=== PATIENT | female | born 1985 | race Caucasian/White ===

== ENCOUNTER 2017-01-23 19:48 | Emergency (ER) | payer SELFPAY ==
[~2017-01-23] VITALS: Ht 165.1 cm; Wt 55.0 kg
[~2017-01-23 19:48] MED LIST: CHLO.12%30 SSP; CLIN150 PO; METH40TA9 PO; PRED20 PO
[2017-01-23 19:50] VITALS: BP 138/80; PULSE 96; RESP 16; TEMP 98.6; O2SAT 98
--- NOTE | 2017-01-23 20:11 | PD ---
Physical Exam Time Seen by Provider: 20:10 Narrative 31 y/o female here for evaluation of a tampon stuck inside the vagina for 6 hours. Vital signs reviewed. Seen at triage desk. Awaiting bed placement. Data Data Last Documented VS Vital Signs Date Time Temp Pulse Resp B/P Pulse Ox O2 Delivery O2 Flow Rate FiO2 01/23/17 19:50 98.6 96 16 138/80 98 MDM Medical Record Reviewed: Yes Supervised Visit with GAMAL: Bill Raman Jan 23, 2017 20:10
[2017-01-23] MEDS ORDERED: METH40TA PO (20:59)
--- NOTE | 2017-01-23 21:12 | PD ---
HPI Chief Complaint: Foreign Body Time Seen by Provider: 21:11 Travel History International Travel<30 days: No Contact w/Intl Traveler<30days: No Traveled to known affect area: No History of Present Illness HPI 31-year-old female presents to the emergency department stating that the string broke on her tampon and she cannot remove it from her vagina. She states that it has been there since 3 PM this afternoon. She denies any other complaints. No abdominal pain. No abnormal vaginal discharge. No fevers or chills. Patient has no medical problems. She does take methadone. No other medications. PFSH Past Medical History Anxiety: Yes Depression: Yes Diminished Hearing: No Psychiatric: Yes (DEPRESSION,ANXIETY) Immunizations Current: Yes Seizures: Yes (WHEN I WAS YOUNGER ONLY) Tetanus Vaccination: < 5 Years Influenza Vaccination: No ?: Not LMP: current Menopausal: No : 1 Para: 0 Miscarriage: 1 : 0 Ectopic : No Ovarian Cysts: Yes Dilation and Curettage (D&C): No Tubal Ligation: No Past Surgical History Section: No Hysterectomy: No Tonsillectomy: Yes Social History Alcohol Use: No Tobacco Use: No Substance Use: Yes (IN [facility]) Allergies-Medications (Allergen,Severity, Reaction): Coded Allergies: latex (Unverified Allergy, Severe, HIVES, 01/23/17) Reported Meds & Prescriptions Reported Meds & Active Scripts Active Reported Methadone (Methadone HCl) 40 Mg Tab 70 Mg PO DAILY Review of Systems Except as stated in HPI: all other systems reviewed are Neg Physical Exam Narrative GENERAL: Well-nourished, well-developed female patient, ambulatory. Afebrile SKIN: Focused skin assessment warm/dry. HEAD: Normocephalic. Atraumatic. EYES: No scleral icterus. No injection or drainage. NECK: Supple, trachea midline. No JVD or lymphadenopathy. CARDIOVASCULAR: Regular rate and rhythm without murmurs, gallops, or rubs. RESPIRATORY: Breath sounds equal bilaterally. No accessory muscle use. GASTROINTESTINAL: Abdomen soft, non-tender, nondistended. MUSCULOSKELETAL: No cyanosis, or edema. Data Data Last Documented VS Vital Signs Date Time Temp Pulse Resp B/P Pulse Ox O2 Delivery O2 Flow Rate FiO2 01/23/17 20:55 16 01/23/17 19:50 98.6 96 138/80 98 MDM Medical Decision Making Medical Screen Exam Complete: Yes Emergency Medical Condition: Yes Medical Record Reviewed: Yes Differential Diagnosis Retained tampon versus medical clearance versus other Narrative Course 31-year-old female presents to the emergency department stating that she cannot get her tampon vagina. It has only been there since 3 PM this afternoon. Patient appears well on exam. She has verbal consent for pelvic exam removal tampon. Tampon was removed without difficulty. Patient is stable for discharge. Diagnosis Primary Impression: Retained tampon Qualified Code: T19.2XXA - Retained tampon, initial encounter Referrals: Primary Care Physician as needed Patient Instructions: General Instructions, Vaginal Foreign Body (ED) Additional Instructions: Follow up with your primary care physician as needed. Return here for any acute, worsening of symptoms. Med/Other Pt SpecificInfo: No Change to Meds Disposition: 01 DISCHARGE HOME Condition: Stable Saeid,Gege LINCOLN Jan 23, 2017 21:12
== END 2017-01-23 22:05 | disposition home or self-care (01) ==
LOC: NEPD 19:48
DX: T19.2XXA Foreign body in vulva and vagina, initial encounter (principal)
CPT/HCPCS: 99282

== ENCOUNTER 2017-09-05 08:14 | Emergency (ER) | payer SELFPAY ==
[~2017-09-05] VITALS: Ht 160 cm; Wt 50.0 kg
[~2017-09-05 08:14] MED LIST changes: -CHLO.12%30 SSP; -CLIN150 PO; +METH40TA PO; -METH40TA9 PO; -PRED20 PO
[2017-09-05 08:17] VITALS: BP 141/72; PULSE 72; RESP 16; TEMP 97.5; O2SAT 100
--- NOTE | 2017-09-05 08:34 | PD ---
HPI Chief Complaint: GI Complaint Time Seen by Provider: 08:31 Travel History International Travel<30 days: No Contact w/Intl Traveler<30days: No Traveled to known affect area: No History of Present Illness HPI Patient states that she woke up suddenly with room spinning, nausea, vomiting that occurred this morning. Patient denies any alleviating factors. Patient denies any associated factors such as headache/rash/fever/chest pain/back pain/ abdominal pain/diarrhea/cough/runny nose/sore throat States allergy to latex Past medical history significant for tonsillectomy, seizures during childhood, ovarian cyst, depression anxiety, PFSH Past Medical History Anxiety: Yes Depression: Yes Diminished Hearing: No Psychiatric: Yes (DEPRESSION,ANXIETY) Immunizations Current: Yes Seizures: Yes (WHEN I WAS YOUNGER ONLY) Menopausal: No : 1 Para: 0 Miscarriage: 1 : 0 Ectopic : No Ovarian Cysts: Yes Dilation and Curettage (D&C): No Tubal Ligation: No Past Surgical History Section: No Hysterectomy: No Tonsillectomy: Yes Social History Alcohol Use: No Tobacco Use: No Substance Use: Yes (IN [facility]) Allergies-Medications (Allergen,Severity, Reaction): Coded Allergies: latex (Verified Allergy, Severe, HIVES, 09/05/17) Reported Meds & Prescriptions Reported Meds & Active Scripts Active Reported Methadone (Methadone HCl) 40 Mg Tab 80 Mg PO DAILY Review of Systems General / Constitutional: No: Fever Eyes: No: Visual changes HENT: Positive: Vertigo, No: Headaches Cardiovascular: No: Chest Pain or Discomfort Respiratory: No: Shortness of Breath Gastrointestinal: Positive: Nausea Genitourinary: No: Dysuria Musculoskeletal: No: Pain Skin: No Rash Neurologic: No: Weakness Psychiatric: Positive: Anxiety Endocrine: No: Polydipsia Hematologic/Lymphatic: No: Easy Bruising Physical Exam Narrative GENERAL: SKIN: Warm and dry. HEAD: Atraumatic. Normocephalic. EYES: Pupils equal and round. No scleral icterus. No injection or drainage. ENT: No nasal bleeding or discharge. Mucous membranes pink and moist. NECK: Trachea midline. No JVD. CARDIOVASCULAR: Regular rate and rhythm. RESPIRATORY: No accessory muscle use. Clear to auscultation. Breath sounds equal bilaterally. GASTROINTESTINAL: Abdomen soft, non-tender, nondistended. MUSCULOSKELETAL: Extremities without clubbing, cyanosis, or edema. No obvious deformities. NEUROLOGICAL: Awake and alert. No obvious cranial nerve deficits. Motor grossly within normal limits. Five out of 5 muscle strength in the arms and legs. Normal speech. PSYCHIATRIC: Appropriate mood and affect; insight and judgment normal. Data Data Last Documented VS Vital Signs Date Time Temp Pulse Resp B/P (MAP) Pulse Ox O2 Delivery O2 Flow Rate FiO2 09/05/17 08:46 17 99 Room Air 09/05/17 08:17 97.5 72 141/72 (95) Orders Orders Complete Blood Count With Diff (09/05/17 08:34) Comprehensive Metabolic Panel (09/05/17 08:34) Lipase (09/05/17 08:34) Urinalysis - C+S If Indicated (09/05/17 08:34) Thyroid Stimulating Hormone (09/05/17 08:34) Iv Access Insert/Monitor (09/05/17 08:34) Ecg Monitoring (09/05/17 08:34) Oximetry (09/05/17 08:34) Ed Urine Pregnancytest Poc (09/05/17 08:34) Drug Screen, Random Urine (09/05/17 08:34) Alcohol (Ethanol) (09/05/17 08:34) Salicylates (Aspirin) (09/05/17 08:34) Tylenol (Acetaminophen) (09/05/17 08:34) Diphenhydramine Inj (Benadryl Inj) (09/05/17 08:45) Prochlorperazine Inj (Compazine Inj) (09/05/17 08:45) Sodium Chlor 0.9% 1000 Ml Inj (Ns 1000 M (09/05/17 08:43) Labs Laboratory Tests Test 09/05/17 08:48 White Blood Count 5.0 TH/MM3 Red Blood Count 4.27 MIL/MM3 Hemoglobin 13.1 GM/DL Hematocrit 39.0 % Mean Corpuscular Volume 91.2 FL Mean Corpuscular Hemoglobin 30.7 PG Mean Corpuscular Hemoglobin Concent 33.7 % Red Cell Distribution Width 13.1 % Platelet Count 158 TH/MM3 Mean Platelet Volume 9.8 FL Neutrophils (%) (Auto) 74.4 % Lymphocytes (%) (Auto) 16.2 % Monocytes (%) (Auto) 7.9 % Eosinophils (%) (Auto) 1.3 % Basophils (%) (Auto) 0.2 % Neutrophils # (Auto) 3.7 TH/MM3 Lymphocytes # (Auto) 0.8 TH/MM3 Monocytes # (Auto) 0.4 TH/MM3 Eosinophils # (Auto) 0.1 TH/MM3 Basophils # (Auto) 0.0 TH/MM3 CBC Comment DIFF FINAL Differential Comment Urine Color YELLOW Urine Turbidity CLOUDY Urine pH 8.5 Urine Specific [place] 1.019 Urine Protein 30 mg/dL Urine Glucose (UA) NEG mg/dL Urine Ketones 10 mg/dL Urine Occult Blood NEG Urine Nitrite NEG Urine Bilirubin NEG Urine Urobilinogen LESS THAN 2.0 MG/DL Urine Leukocyte Esterase NEG Urine RBC LESS THAN 1 /hpf Urine WBC 1 /hpf Urine Squamous Epithelial Cells 3 /hpf Urine Amorphous Sediment MANY Urine Bacteria OCC /hpf Urine Mucus FEW /lpf Microscopic Urinalysis Comment CULT NOT INDICATED Blood Urea Nitrogen 9 MG/DL Creatinine 0.71 MG/DL Random Glucose 120 MG/DL Total Protein 6.8 GM/DL Albumin 3.8 GM/DL Calcium Level 8.6 MG/DL Alkaline Phosphatase 46 U/L Aspartate Amino Transf (AST/SGOT) 21 U/L Alanine Aminotransferase (ALT/SGPT) 21 U/L Total Bilirubin 0.5 MG/DL Sodium Level 141 MEQ/L Potassium Level 3.5 MEQ/L Chloride Level 108 MEQ/L Carbon Dioxide Level 25.9 MEQ/L Anion Gap 7 MEQ/L Estimat Glomerular Filtration Rate 96 ML/MIN Lipase 62 U/L Thyroid Stimulating Hormone 3rd Gen 1.270 uIU/ML Salicylates Level 5.4 MG/DL Urine Opiates Screen NEG Acetaminophen Level LESS THAN 2.0 MCG/ML Urine Barbiturates Screen NEG Urine Amphetamines Screen NEG Urine Benzodiazepines Screen NEG Urine Cocaine Screen NEG Urine Cannabinoids Screen POS Ethyl Alcohol Level LESS THAN 3 MG/DL [facility] Medical Decision Making Medical Screen Exam Complete: Yes Emergency Medical Condition: Yes Medical Record Reviewed: Yes Differential Diagnosis related versus thyroid disorder versus electrolyte imbalance versus anemia versus dehydration Narrative Course CBC shows no leukocytosis, no anemia, normal platelet count, no left shift Chemistry shows a normal TSH screen, normal liver/normal kidney function UA is not consistent with a UTI and cystitis consistent with poor specimen collection. Tox is negative for alcohol, barbiturates and amphetamines benzodiazepines cocaine opiates or salicylates. Positive for marijuana Diagnosis Primary Impression: Vertigo Patient Instructions: General Instructions, Vertigo (ED) Scripts Meclizine (Meclizine) 25 Mg Tab 25 MG PO TID Y for VERTIGO, #21 TAB 0 Refills Prov: Trey Melendez MD 09/05/17 Disposition: 01 DISCHARGE HOME Condition: Stable Trey Melendez MD Sep 05, 2017 08:34
[2017-09-05] MEDS ORDERED: SODIUM CHLOR 0.9% 1000 ML INJ 1,000 ML IV SCH (08:43)
[2017-09-05] MEDS ORDERED: PROCHLORPERAZINE INJ 10 MG/2 ML VIAL IV PUSH ONE (08:45)
[2017-09-05] MEDS ORDERED: diphenhydrAMINE HCL 50 MG/ML VIAL IVP ONE (08:45)
[2017-09-05 08:46] VITALS: RESP 17; O2SAT 99
[2017-09-05 09:21] LABS: AUTOMATED NEUTROPHIL # 3.7 TH/MM3 (1.8-7.7); BASOPHIL % 0.2 % (0.0-2.0); EOSINOPHIL # 0.1 TH/MM3 (0-0.4); EOSINOPHIL % 1.3 % (0.0-4.0); HEMOGLOBIN 13.1 GM/DL (11.6-15.3); LYMPH % 16.2 % (9.0-44.0); LYMPHOCYTE # 0.8 TH/MM3 (1.0-4.8); MEAN CELL VOLUME 91.2 FL (80.0-100.0); MEAN CORPUSCULAR HEMOGLOBIN 30.7 PG (27.0-34.0); MEAN CORPUSCULAR HGB CONC 33.7 % (32.0-36.0); MEAN PLATELET VOLUME 9.8 FL (7.0-11.0); MONO % 7.9 % (0.0-8.0); MONOCYTE # 0.4 TH/MM3 (0-0.9); NEUT % 74.4 % (16.0-70.0); PLATELET COUNT 158 TH/MM3 (150-450); RED BLOOD COUNT 4.27 MIL/MM3 (4.00-5.30); RED CELL DISTRIBUTION WIDTH 13.1 % (11.6-17.2)
[2017-09-05 09:55] LABS: ALBUMIN 3.8 GM/DL (3.4-5.0); AST (GOT) 21 U/L (15-37); BICARBONATE 25.9 MEQ/L (21.0-32.0); BLOOD UREA NITROGEN 9 MG/DL (7-18); CALCIUM 8.6 MG/DL (8.5-10.1); CHLORIDE 108 MEQ/L (98-107); CREATININE 0.71 MG/DL (0.50-1.00); GLOMERULAR FILTRATION RATE 96 ML/MIN (>89); GLUCOSE,RANDOM 120 MG/DL (74-106); SODIUM (NA) 141 MEQ/L (136-145)
[2017-09-05 09:56] LABS: ALT (GPT) 21 U/L (10-53)
[2017-09-05 10:01] LABS: AMORPHOUS SEDIMENT, URINE MANY; BACTERIA, URINE OCC /hpf; BILIRUBIN, URINE NEG (NEG); BLOOD, URINE NEG (NEG); GLUCOSE,URINE NEG (NEG); KETONE, URINE 10 mg/dL (NEG); MUCUS URINE FEW /lpf (OCC); NITRITE,URINE NEG (NEG); PH, URINE 8.5 (5.0-8.5); SQUAMOUS EPITHELIAL CELL URINE 3 /hpf (0-5); URINE COLOR YELLOW (YELLW/STRAW); URINE LEUKOCYTE ESTERASE NEG (NEG)
[2017-09-05 10:07] LABS: ACETAMINOPHEN LESS THAN 2.0 MCG/ML (10.0-30.0); ALKALINE PHOSPHATASE 46 U/L (45-117); TOTAL BILIRUBIN ADULT 0.5 MG/DL (0.2-1.0); TOTAL PROTEIN 6.8 GM/DL (6.4-8.2)
[2017-09-05 11:16] VITALS: BP 112/58; PULSE 86; RESP 16; TEMP 97.8; O2SAT 99
[2017-09-05] MEDS ORDERED: MECL-62 PO (11:17)
[2017-09-05 11:25] VITALS: BP 118/63; TEMP 97.8
== END 2017-09-05 11:25 | disposition home or self-care (01) ==
LOC: NEPE 08:14
DX: R42 Dizziness and giddiness (principal); F32.9 Major depressive disorder, single episode, unspecified; F41.9 Anxiety disorder, unspecified; N83.209 Unspecified ovarian cyst, unspecified side
CPT/HCPCS: 80053; 80307; 81001; 83690; 84443; 84703; 85025; 96361; 96374; 96375; 99284; J0780; J1200; J7030